=== PATIENT | male | born 1965 | race African-American/Black ===

== ENCOUNTER 2022-08-08 19:15 | Inpatient (IN) | payer OTHER ==
[~2022-08-08] VITALS: Ht 198.1 cm; Wt 147.9 kg
--- NOTE | 2022-08-08 19:30 | NUR ---
BIBSELF C/O PALPITATIONS AND SOB STARTED LAST NIGHT. PATIENT IS AAOX4. AMBULATORY, ABLE TO MAKE NEEDS KNOWN. PLACED COMFORTABLY IN BED. VITALS CHECKED.
--- NOTE | 2022-08-08 19:30 | NUR ---
SEEN AND EXAMINED PATIENT. HE CLAIMED THAT HE HAS EPISODES OF DIZZINESS WHENEVER HIS HEART BEATS FAST AND OUT OF BREATH. ATTACHED TO CANCELING AND CUTTING CONTROL CLERK. MADE AWARE.
--- NOTE | 2022-08-08 19:50 | NUR ---
EKG DONE AT BEDSIDE.
[2022-08-08] MEDS ORDERED: ASPIRIN 325 MG TABLET ONE (19:58)
[2022-08-08] MEDS ORDERED: ASPIRIN 325 MG TABLET PO ONE (20:00)
--- NOTE | 2022-08-08 20:09 | NUR ---
IV CANNULA G18 INSERTED ON LEFT AC. BLOOD DRAWN AND SENT TO LAB
--- NOTE | 2022-08-08 20:15 | NUR ---
COVID SWAB DONE AND SENT TO LAB
[2022-08-08 20:23] LABS: BASOPHILS % (AUTO) 0.5 % (0.0-2.0); EOSINOPHILS % (AUTO) 3.9 % (0.0-6.0); HEMATOCRIT 41 % (39-51); HEMOGLOBIN 13.1 g/dL (13.5-17.5); LYMPHOCYTES # (AUTO) 1.2 K/uL (0.8-4.8); LYMPHOCYTES % (AUTO) 23.2 % (20.0-44.0); MEAN CORPUSCULAR HGB CONC 32 g/dl (31.0-36.0); MEAN CORPUSCULAR VOLUME 88 fL (80-96); MONOCYTES # (AUTO) 0.7 K/uL (0.1-1.30); MONOCYTES % (AUTO) 14.1 % (2.0-12.0); NEUTROPHILS % (AUTO) 58.3 % (43.0-81.0); PLATELET COUNT (AUTO) 223 K/uL (150-450); RED BLOOD CELL COUNT(AUTO) 4.65 MIL/uL (4.5-6.0); WHITE BLOOD COUNT (AUTO) 5.2 K/uL (4.3-11.0)
[2022-08-08 20:26] LABS: CALCIUM, SERUM 8.3 mg/dL (8.5-10.1); CARBON DIOXIDE 31 mmol/L (21-32); CHLORIDE 106 mmol/L (98-107); CREATININE 1.4 mg/dL (0.6-1.3); GLUCOSE 106 mg/dL (74-106); SODIUM SERUM 140 mmol/L (136-145); UREA NITROGEN, BLOOD 23 mg/dL (7-18)
--- NOTE | 2022-08-08 20:34 | NUR ---
GROUTER HELPER AT BEDSIDE
[2022-08-08 20:38] LABS: ALANINE AMINOTRANSFERASE 34 U/L (12-78); ALBUMIN 2.8 g/dL (3.4-5.0); ALKALINE PHOSPHATASE 37 U/L (46-116); ASPARTATE AMINOTRANSFERASE 19 U/L (15-37); BILIRUBIN,DIRECT 0.2 mg/dL (0.0-0.2); BILIRUBIN,TOTAL 0.9 mg/dL (0.2-1.0); TOTAL PROTEIN, SERUM 6.7 g/dL (6.4-8.2)
[2022-08-08] MEDS ORDERED: FUROSEMIDE 40 MG/4 ML VIAL IV ONE (21:30)
[2022-08-08] MEDS ORDERED: METOPROLOL TARTRATE INJ 5 MG/5 ML AMPUL IV ONE (21:30)
[2022-08-08] MEDS ORDERED: FUROSEMIDE 40 MG/4 ML VIAL ONE (21:39)
[2022-08-08] MEDS ORDERED: METOPROLOL TARTRATE INJ 5 MG/5 ML AMPUL ONE (21:39)
--- NOTE | 2022-08-08 21:54 | NUR ---
room 321-2
--- NOTE | 2022-08-08 22:02 | NUR ---
report given to Jael SCHAFER to continue care.
[2022-08-08] MEDS ORDERED: HYDROCODONE/APAP 5/325MG TABLET PO PRN (22:30)
[2022-08-08] MEDS ORDERED: MAG HYDROX/AL HYDROX/SIMETH 30 ML UDC PO PRN (22:30)
[2022-08-08] MEDS ORDERED: MAGNESIUM HYDROXIDE 30 ML UDC PO PRN (22:30)
[2022-08-08] MEDS ORDERED: MORPHINE SULFATE INJ 2 MG/ML DISP.SYRIN IV PRN (22:30)
[2022-08-08] MEDS ORDERED: ONDANSETRON HCL/PF 4 MG/2 ML VIAL IVP PRN (22:30)
[2022-08-08] MEDS ORDERED: ZOLPIDEM TARTRATE 5 MG TABLET PO PRN (22:30)
[2022-08-08] MEDS ORDERED: Z GUARD REMEDY 4 OZ OINT TP PRN (22:30)
[2022-08-08] MEDS ORDERED: ACETAMINOPHEN 325 MG TABLET PO PRN (22:30)
--- NOTE | 2022-08-08 22:52 | NUR ---
SPORTS ANALYST AT BEDSIDE
[2022-08-09] VITALS: BP 131/97
--- NOTE | 2022-08-09 00:34 | NUR ---
TRANSFERRED TO ROOM
--- NOTE | 2022-08-09 01:52 | NUR ---
RT Q4 neb tx were ordered in ER at 1029 @ 2300, but was not made aware of order. Will give [address] on CPAP as ordered.
--- NOTE | 2022-08-09 02:29 | NUR ---
PER RT,PATIENT REFUSED THE CPAP MACHINE.
[2022-08-09] MEDS: ALBUTEROL FS 2.5 MG/3 ML VIAL.NEB NEB PRN ×2 (02:32→02:37)
--- NOTE | 2022-08-09 02:38 | NUR ---
RT Pt refuses Q4 breathing tx. He says it will negatively affect his heart rate due to his heart condition. CPAP was also refused, but left in room standby. Pt said he will notify visiting family to bring home CPAP machine. RN notified and aware.
[2022-08-09 04:00] VITALS: BP 130/92
[2022-08-09 06:13] LABS: BASOPHILS % (AUTO) 0.4 % (0.0-2.0); EOSINOPHILS % (AUTO) 4.2 % (0.0-6.0); HEMATOCRIT 42 % (39-51); HEMOGLOBIN 13.5 g/dL (13.5-17.5); LYMPHOCYTES # (AUTO) 1.8 K/uL (0.8-4.8); LYMPHOCYTES % (AUTO) 33.7 % (20.0-44.0); MEAN CORPUSCULAR HGB CONC 33 g/dl (31.0-36.0); MEAN CORPUSCULAR VOLUME 88 fL (80-96); MONOCYTES # (AUTO) 0.8 K/uL (0.1-1.30); MONOCYTES % (AUTO) 15.6 % (2.0-12.0); NEUTROPHILS # (AUTO) 2.5 K/uL (1.8-8.9); NEUTROPHILS % (AUTO) 46.1 % (43.0-81.0); PLATELET COUNT (AUTO) 179 K/uL (150-450); WHITE BLOOD COUNT (AUTO) 5.4 K/uL (4.3-11.0)
[2022-08-09 06:46] LABS: THYROID STIMULATING HORMONE 0.991 uIU/mL (0.358-3.74)
[2022-08-09 06:48] LABS: CALCIUM, SERUM 8.4 mg/dL (8.5-10.1); CREATININE 1.4 mg/dL (0.6-1.3); POTASSIUM 3.7 mmol/L (3.5-5.1)
--- NOTE | 2022-08-09 07:30 | NUR ---
Patient received lying awake in bed. Oriented x4, cooperative. With IV access left AC #20 SL, patent and intact. Still with shortness of breath, labored breathing in room air; refused to have CPAP. Patient refused IV fluids. No edema noted on both extremities. On cardiac diet. Bed in lowest position with side rails up x2. Call light within reach. Will continue to monitor patient throughout shift.
[2022-08-09] MEDS: HYDROCHLOROTHIAZIDE 25 MG TABLET PO SCH (08:25)
[2022-08-09] MEDS ORDERED: TIOT18CA3 INH (08:26)
[2022-08-09] MEDS ORDERED: ATOR40TA PO (08:26)
[2022-08-09] MEDS ORDERED: APIX5TAB PO (08:26)
[2022-08-09] MEDS ORDERED: CARV12.52 PO (08:26)
[2022-08-09] MEDS ORDERED: AMIO200T5 PO (08:26)
[2022-08-09] MEDS ORDERED: HYDR-4077 PO (08:26)
[2022-08-09] MEDS ORDERED: VALS1TAB4 PO (08:26)
[2022-08-09] MEDS ORDERED: LEVA0.6320 IH (08:26)
[2022-08-09] MEDS: PANTOPRAZOLE 40 MG TABLET.DR PO SCH (08:27)
[2022-08-09 08:40] VITALS: BP 120/66
[2022-08-09] MEDS ORDERED: FUROSEMIDE 40 MG/4 ML VIAL IV SCH ×2 (09:00→18:00)
[2022-08-09] MEDS ORDERED: VALSARTAN 80 MG TABLET PO SCH (09:00)
[2022-08-09] MEDS ORDERED: AMIODARONE HCL 200 MG TABLET PO SCH ×2 (09:00→09:30)
[2022-08-09] MEDS ORDERED: hydrALAZINE HCL 25 MG TABLET PO SCH (09:00)
[2022-08-09] MEDS ORDERED: APIXABAN 5 MG TABLET PO SCH ×2 (09:00→09:30)
[2022-08-09] MEDS ORDERED: CARVEDILOL 6.25 MG TABLET PO SCH (09:00)
[2022-08-09] MEDS ORDERED: Medication Not On Formulary EA (Levalbuterol Hcl (Xopenex) 0.63 MG) IH PRN (09:30)
[2022-08-09] MEDS ORDERED: CARVEDILOL 12.5 MG TABLET PO SCH (09:30)
[2022-08-09] MEDS: POTASSIUM CHLORIDE 20 MEQ TAB.PRT.SR PO SCH ×3 (10:45→12:50)
[2022-08-09] MEDS: NEUTRA PHOS 1 POWD.PACKET PO SCH ×2 (10:45→17:54)
[2022-08-09] MEDS: FUROSEMIDE 40 MG/4 ML VIAL IV SCH ×3 (10:45→17:54)
[2022-08-09 11:22] LABS: EOSINOPHILS % (MANUAL) 7 % (0-4); LYMPHOCYTES % (MANUAL) 30 % (16-48); MONOCYTES % (MANUAL) 18 % (0-11.0); NEUTROPHILS % (MANUAL) 45 (42-76)
[2022-08-09] MEDS: hydrALAZINE HCL 50 MG TABLET PO SCH ×2 (12:50→16:41)
[2022-08-09] MEDS: IPRATROPIUM NEB FS 0.5 MG/2.5 ML AMPUL.NEB NEB SCH ×2 (14:04→19:41)
[2022-08-09] MEDS ORDERED: LEVALBUTEROL HCL NEB 1.25 MG/0.5 ML VIAL.NEB NEB PRN (16:00)
--- NOTE | 2022-08-09 16:00 | NUR ---
RN NOTE Patient is complaining of dry, non-productive cough. Instructed deep breathing exercise. Informed ROQUE Burdick. Given Guaifenesin syrup 5ml PRN as ordered. Will continue to monitor patient.
[2022-08-09] MEDS ORDERED: GUAIFENESIN/D-METHORPHAN HB 5 ML UDC PO PRN (16:30)
[2022-08-09] MEDS: CARVEDILOL 12.5 MG TABLET PO SCH (16:43)
[2022-08-09] MEDS: APIXABAN 5 MG TABLET PO SCH (16:44)
[2022-08-09 16:51] VITALS: BP 112/46
--- NOTE | 2022-08-09 18:00 | NUR ---
Patient complained of stomach upset, rated pain scale 3/10. Offered black tea. Will monitor patient.
--- NOTE | 2022-08-09 19:47 | NUR ---
RN NOTE Patient remains stable. Safety precautions maintained. Will continue with POC.
[2022-08-09 20:00] VITALS: BP 92/70
[2022-08-09] MEDS ORDERED: ATORVASTATIN 40 MG TABLET PO SCH ×2 (22:00)
--- NOTE | 2022-08-10 00:38 | NUR ---
RN NOTE Per explosive technician, patient converted from Afib to SR, HR on the low 60's. Patient is using CPAP machine from home.
[2022-08-10] MEDS: IPRATROPIUM NEB FS 0.5 MG/2.5 ML AMPUL.NEB NEB SCH ×3 (02:02→13:30)
--- NOTE | 2022-08-10 06:53 | NUR ---
ELECTRICAL LABORATORY TECHNICIAN CLOSING NOTE Patient in bed, asleep. A/O x 4, able to make needs known. Stable on room air, breathnig evenly and unlabored. No SOB or s/s of distress noted. Iv access on LAC #20 SL, intact and patent. Patient used own CPAP machine last night. On external monitor, showing SR with PVCs, Hr 65. All needs attended to. Due meds given. Safety precautions in place: bed in low, locked position; siderails up x 2; call light within reach. Will endorse to morning shift nurse for MARTHA.
--- NOTE | 2022-08-10 07:32 | NUR ---
RN OPENING NOTES PATIENT AWAKE IN BED RESTING, A/O X 4. NO S/S OF PAIN NOTED AT THIS TIME. ON ROOM AIR, NO DISTRESS OR SHORTNESS OF BREATH NOTED. IV ACCESS LAC #20G, INTACT, PATENT, FLUSHING WELL. PATIENT WITH EXTERNAL TOWN JUSTICE WITH CURRENT READING OF SR WITH PVC'S AND HR OF 65, NO CARDIAC DISTRESS NOTED AT THIS TIME. FALL AND SAFETY MEASURES IN PLACE, BED ALARM ON, BED IN LOW LOCK POSITION, CALL LIGHT AND TABLE WITHIN EASY REACH, SIDE RAILS UP X2. WILL CONTINUE TO MONITOR.
[2022-08-10 07:33] LABS: BILIRUBIN,TOTAL 1.1 mg/dL (0.2-1.0); CALCIUM, SERUM 8.6 mg/dL (8.5-10.1); CREATININE 1.6 mg/dL (0.6-1.3); MAGNESIUM 2.2 mg/dL (1.8-2.4); PHOSPHORUS 5.1 mg/dL (2.5-4.9); POTASSIUM 3.7 mmol/L (3.5-5.1); TOTAL PROTEIN, SERUM 7.3 g/dL (6.4-8.2)
[2022-08-10 07:38] LABS: BASOPHILS % (AUTO) 0.5 % (0.0-2.0); EOSINOPHILS % (AUTO) 4.4 % (0.0-6.0); HEMATOCRIT 42 % (39-51); HEMOGLOBIN 13.6 g/dL (13.5-17.5); LYMPHOCYTES # (AUTO) 1.7 K/uL (0.8-4.8); LYMPHOCYTES % (AUTO) 34.6 % (20.0-44.0); MEAN CORPUSCULAR HGB CONC 33 g/dl (31.0-36.0); MEAN CORPUSCULAR VOLUME 89 fL (80-96); MONOCYTES # (AUTO) 0.9 K/uL (0.1-1.30); MONOCYTES % (AUTO) 18.7 % (2.0-12.0); NEUTROPHILS % (AUTO) 41.8 % (43.0-81.0); PLATELET COUNT (AUTO) 238 K/uL (150-450); RED BLOOD CELL COUNT(AUTO) 4.74 MIL/uL (4.5-6.0); WHITE BLOOD COUNT (AUTO) 4.8 K/uL (4.3-11.0)
[2022-08-10 08:00] VITALS: BP 99/57
[2022-08-10] MEDS: PANTOPRAZOLE 40 MG TABLET.DR PO SCH (08:53)
[2022-08-10] MEDS: APIXABAN 5 MG TABLET PO SCH (08:55)
[2022-08-10] MEDS: CARVEDILOL 12.5 MG TABLET PO SCH (09:00)
[2022-08-10] MEDS: HYDROCHLOROTHIAZIDE 25 MG TABLET PO SCH (09:00)
[2022-08-10] MEDS ORDERED: AMIODARONE HCL 200 MG TABLET PO SCH ×2 (09:00)
[2022-08-10] MEDS ORDERED: VALSARTAN 80 MG TABLET PO SCH (09:00)
[2022-08-10] MEDS: hydrALAZINE HCL 50 MG TABLET PO SCH ×2 (09:00→13:00)
--- NOTE | 2022-08-10 10:02 | NUR ---
RN NOTE PATIENT MORNING BLOOD PRESSURE MEDICATIONS WERE NOT ADMINISTERED, PATIENT REFUSED TO TAKE THEM. BLOOD PRESSURE 99/57 AND HR 60. WILL CONTINUE TO MONITOR.
[2022-08-10 10:24] LABS: EOSINOPHILS % (MANUAL) 6 % (0-4); LYMPHOCYTES % (MANUAL) 38 % (16-48); MONOCYTES % (MANUAL) 16 % (0-11.0); NEUTROPHILS % (MANUAL) 40 (42-76)
[2022-08-10] MEDS ORDERED: AMIO200T5 PO (10:39)
[2022-08-10] MEDS ORDERED: FURO-144 PO (10:39)
[2022-08-10 13:00] VITALS: BP 126/63
--- NOTE | 2022-08-10 14:15 | NUR ---
WARP DYEING TENDER NOTE PATIENT DISCHARGE IN STABLE CONDITION. A/O X4. V/S TAKEN, STABLE AND RECORDED. NO IV ACCESS. NAME ARM BAND REMOVED. EXTERNAL MILL ROLL OPERATOR REMOVED AND RETURNED TO TELE DESK. SKIN ASSESSMENT DONE, SKIN INTACT. ALL BELONGINGS CHECKED AND SIGNED. HEALTH TEACHING AND DISCHARGE INSTRUCTIONS GIVEN TO PATIENT, VERBALIZED UNDERSTANDING. DISCUSSED PRESCRIPTIONS WITH PATIENT AND INSTRUCTED TO MAKE APPOINTMENT WITH HIS DOCTOR, INCASE OF EMERGENCY TO CALL 911 OR TO GO TO NEAREST ER. PATIENT LEFT UNIT AMBULATING WITH NO SIGNS OF DISTRESS, ACCOMPANIED BY AUDIT MACHINE OPERATOR TO THE LOBBY. CHARGE NURSE AWARE OF DISCHARGE.
--- NOTE | 2022-08-10 15:30 | NUR ---
TX NOT GIVEN DUE TO PATIENT DISCHARGED. Addendum: 08/10/22 at 1530 by JB [email or web address] RT Amended: Links added.
== END 2022-08-10 14:13 | disposition home or self-care (01) | DRG 194 ==
LOC: ER 19:17 → TELE 23:59 → MED 08-09 00:56 → TELE 08-09 01:21
PROVIDERS: ADMIT Nurse Practitioner Acute Care; ATTEND Nurse Practitioner Family
DX: I11.0 Hypertensive heart disease with heart failure (principal); J96.01 Acute respiratory failure with hypoxia; N17.0 Acute kidney failure with tubular necrosis; E46 Unspecified protein-calorie malnutrition; I48.20 Chronic atrial fibrillation, unspecified; E83.39 Other disorders of phosphorus metabolism; E88.09 Other disorders of plasma-protein metabolism, not elsewhere classified; I42.9 Cardiomyopathy, unspecified; E66.01 Morbid (severe) obesity due to excess calories; E78.5 Hyperlipidemia, unspecified; J45.909 Unspecified asthma, uncomplicated; Z79.01 Long term (current) use of anticoagulants; Z95.810 Presence of automatic (implantable) cardiac defibrillator; Z68.39 Body mass index [BMI] 39.0-39.9, adult; Z87.891 Personal history of nicotine dependence; G47.33 Obstructive sleep apnea (adult) (pediatric); I50.33 Acute on chronic diastolic (congestive) heart failure; G47.30 Sleep apnea, unspecified
CPT/HCPCS: 36415; 71045-TC; 76770-TC; 80048-TC; 80053-TC; 80061-TC; 80076-TC; 83735-TC; 83880; 84100-TC; 84443-TC; 84484-TC; 85025-TC; 93307-TC; 94799-TC; C9803; G0378; J1940; J3490